=== PATIENT | female | born 1970 | race Caucasian/White ===

== ENCOUNTER 2017-03-30 20:31 | Observation (INO) | payer OTHER, MEDICAID ==
[~2017-03-30] VITALS: Ht 165.1 cm; Wt 79.8 kg
[2017-03-31] MEDS ORDERED: SODIUM CHLORIDE 0.9% 1,000 ML IV ONE (01:35)
[2017-03-31] MEDS ORDERED: MORPHINE SULFATE 4 MG/ML CPJ (NOT FOR IM USE) IV STA (01:35)
[2017-03-31] MEDS ORDERED: ONDANSETRON HCL 4MG/2ML VIAL IV STA (01:35)
[2017-03-31 01:57] LABS: BASOPHILS % 1.2 % (0.0-2.0); EOSINOPHILS % 1.1 % (0.0-5.0); HEMATOCRIT. 36.8 % (36.0-48.0); HEMOGLOBIN. 11.5 g/dL (12.0-16.0); LYMPHOCYTES % 12.9 % (20.0-50.0); MEAN CORPUSCULAR HEMOGLOBIN 21.7 pg (28.0-32.0); MEAN CORPUSCULAR VOLUME 69.5 fL (81.0-99.0); MEAN PLATELET VOLUME 8.1 fl (7.4-10.4); MONOCYTES % 5.7 % (2.0-8.0); NEUTROPHILS % 79.1 % (40.0-76.0); PLATELET 380 x1000/uL (130-400); RED CELL DISTRIBUTION WIDTH 18.1 % (11.6-14.6)
[2017-03-31 02:03] LABS: INR 1.1; PROTHROMBIN TIME 10.9 sec
[2017-03-31 02:07] LABS: CARBON DIOXIDE 29 mEq/L (21-32); CHLORIDE 103 mEq/L (98-107)
[2017-03-31 02:16] LABS: CLARITY URINE CLOUDY (CLEAR); COLOR URINE YELLOW (YELLOW); GLUCOSE URINE 3+ (NEGATIVE); KETONES URINE TRACE (NEGATIVE); LEUKOCYTE ESTERASE URINE NEGATIVE (NEGATIVE); NITRITE URINE POSITIVE (NEGATIVE); OCCULT BLOOD URINE 3+ (NEGATIVE); PH URINE 5.5 (4.5-8.0); PROTEIN URINE NEGATIVE (NEGATIVE); SPECIFIC GRAVITY URINE 1.044 (1.005-1.030); UROBILINOGEN URINE 0.2 E.U./dL (0.2-1.0)
[2017-03-31 02:19] LABS: PLATELET ESTIMATE NORMAL
[2017-03-31] MEDS ORDERED: PIPERACILLIN/TAZ 3.375G PREMIX 50 ML IV ONE (05:30)
[2017-03-31] MEDS ORDERED: SKIN ADHESIVE 0.7 GM EA TOP ONE (10:11)
[2017-03-31] MEDS ORDERED: BUPIVACAINE HCL 0.5% (5MG/ML) 50ML ONE (10:12)
[2017-03-31] MEDS ORDERED: MORPHINE SULFATE 2 MG/ML CPJ (NOT FOR IM USE) IV PRN (11:00)
[2017-03-31] MEDS ORDERED: ACETAMINOPHEN 325MG TABLET PO PRN ×2 (11:00→17:45)
[2017-03-31] MEDS ORDERED: ONDANSETRON HCL 4MG/2ML VIAL IV PRN ×3 (11:00→17:45)
[2017-03-31] MEDS ORDERED: HYDROCODONE/ACETAMINOPHEN 5/325MG TABLET PO PRN ×2 (11:00)
[2017-03-31] MEDS ORDERED: NORMAL SALINE 0.9% 10 ML SYR ONE (11:36)
[2017-03-31] MEDS ORDERED: MIDAZOLAM HCL 2 MG/2 ML VIAL ONE (12:03)
[2017-03-31] MEDS ORDERED: FENTANYL CITRATE/PF 50MCG/ML 2ML VIAL ONE (12:06)
[2017-03-31] MEDS ORDERED: ROCURONIUM BROMIDE 10MG/ML VIAL 5ML IV ONE (12:07)
[2017-03-31] MEDS ORDERED: PROPOFOL 200MG/20ML VIAL IV ONE (12:07)
[2017-03-31] MEDS ORDERED: LIDOCAINE HCL 1% 20ML VIAL (Pyxis) INJ ONE (12:07)
[2017-03-31] MEDS ORDERED: INSULIN REGULAR (HUMULIN R) 300UNITS/3ML ONE (12:15)
[2017-03-31] MEDS ORDERED: METOCLOPRAMIDE HCL 10MG/2ML VIAL ONE (12:20)
[2017-03-31] MEDS ORDERED: NEOSTIGMINE METHYLSULFATE 1MG/ML 10 ML VIAL ONE (12:41)
[2017-03-31] MEDS ORDERED: GLYCOPYRROLATE 0.2 MG/ML 2ML VIAL ONE (12:41)
[2017-03-31] MEDS ORDERED: SODIUM CHLORIDE 0.9% 1,000 ML IV SCH (13:06)
[2017-03-31] MEDS ORDERED: HYDROMORPHONE HCL/PF 2MG/ML CPJ IV PRN (13:15)
[2017-03-31] MEDS ORDERED: ESMOLOL HCL 10MG/ML 10ML VIAL IV PRN (13:15)
[2017-03-31] MEDS ORDERED: SODIUM CHLORIDE 0.9% 10ML VIAL ONE (13:17)
[2017-03-31] MEDS ORDERED: IOHEXOL-300 100 ML BOTTLE ONE (13:17)
[2017-03-31 16:15] VITALS: BP 98/65
[2017-03-31] MEDS ORDERED: SODIUM CHLORIDE 0.45% 1,000 ML IV SCH (17:35)
[2017-03-31] MEDS ORDERED: CLONIDINE 0.1MG TABLET PO PRN (17:45)
[2017-03-31] MEDS ORDERED: IPRATROPIUM/ALBUTEROL 0.5-3(2.5)MG/3ML NEB INH PRN (17:45)
[2017-03-31] MEDS ORDERED: DEXT 5%/0.45% NACL KCL 20MEQ/L 1,000 ML IV SCH (18:00)
[2017-03-31] MEDS: MORPHINE SULFATE 4 MG/ML CPJ (NOT FOR IM USE) IV PRN (18:52)
[2017-03-31 20:00] VITALS: BP 105/72
[2017-03-31] MEDS: SODIUM CHLORIDE 0.9% INJ 3ML FLUSH IVF SCH (22:00)
[2017-03-31] MEDS: PIPERACILLIN/TAZ 3.375G PREMIX 50 ML IV SCH (23:28)
[2017-04-01] VITALS: BP 117/66
[2017-04-01] MEDS: MORPHINE SULFATE 4 MG/ML CPJ (NOT FOR IM USE) IV PRN ×2 (01:35→09:48)
[2017-04-01 04:00] VITALS: BP 101/62
[2017-04-01] MEDS: PIPERACILLIN/TAZ 3.375G PREMIX 50 ML IV SCH ×3 (04:59→13:02)
[2017-04-01] MEDS ORDERED: DEXTROSE 50% WATER 50ML SYRINGE IV PRN (05:15)
[2017-04-01 06:32] LABS: BASOPHILS % 0.6 % (0.0-2.0); EOSINOPHILS % 0.6 % (0.0-5.0); HEMATOCRIT. 33.4 % (36.0-48.0); HEMOGLOBIN. 10.5 g/dL (12.0-16.0); LYMPHOCYTES % 10.4 % (20.0-50.0); MEAN CORPUSCULAR HEMOGLOBIN 21.9 pg (28.0-32.0); MEAN CORPUSCULAR VOLUME 69.6 fL (81.0-99.0); MONOCYTES % 6.6 % (2.0-8.0); NEUTROPHILS % 81.8 % (40.0-76.0); PLATELET 374 x1000/uL (130-400); RED BLOOD CELL COUNT 4.79 mill/uL (4.2-5.4); RED CELL DISTRIBUTION WIDTH 18.2 % (11.6-14.6)
[2017-04-01] MEDS: SODIUM CHLORIDE 0.9% INJ 3ML FLUSH IVF SCH ×2 (07:08→13:08)
[2017-04-01] MEDS: BLOOD SUGAR DIAGNOSTIC STRIP TEST SCH ×3 (07:19→17:19)
[2017-04-01 07:22] LABS: CARBON DIOXIDE 22 mEq/L (21-32); CHLORIDE 110 mEq/L (98-107); HDL CHOLESTEROL 43 mg/dL (40-59); LDL CHOLESTEROL 101 mg/dL (5-100); T4 FREE 1.19 ng/dL (0.76-1.46)
[2017-04-01 08:00] VITALS: BP 111/75
[2017-04-01] MEDS: INSULIN LISPRO 100 UNITS/ML SUBCUT SCH ×3 (08:26→17:51)
[2017-04-01] MEDS ORDERED: ACETAMINOPHEN 650MG SUPP PR PRN (09:30)
[2017-04-01] MEDS ORDERED: DEXT 5%/0.45% NACL KCL 20MEQ/L 1,000 ML IV SCH (10:30)
[2017-04-01 12:00] VITALS: BP 109/73
[2017-04-01 16:00] VITALS: BP 104/70
[2017-04-01 18:11] VITALS: BP 95/62
== END 2017-04-01 19:01 | disposition home or self-care (01) ==
LOC: ER 20:31 → 6EST 03-31 09:22 → INTOOBSV 03-31 09:22 → ENRESERV 03-31 13:29
PROVIDERS: ADMIT Internal Medicine; ATTEND Internal Medicine
DX: K35.80 Unspecified acute appendicitis (principal); A41.9 Sepsis, unspecified organism; R11.2 Nausea with vomiting, unspecified; I10 Essential (primary) hypertension; E11.9 Type 2 diabetes mellitus without complications
CPT/HCPCS: 36415; 44970; 74177; 80053; 80061; 81001; 82962; 83690; 84439; 84443; 85025; 85610; 87040; 87077; 87086; 87186; 88304; 93005; 96365; 96372; 96375; 96376; 99285; A4216; G0168; G0378; J1815; J2250; J2270; J2405; J2543; J2710; J2765; J3010; J3490; J7030; Q9967; J2704

== ENCOUNTER 2018-09-23 20:57 | Emergency (ER) | payer MEDICARE, MEDICAID ==
[~2018-09-23] VITALS: Ht 165.1 cm; Wt 81.0 kg
[~2018-09-23 20:57] MED LIST: BUPR-43 PO; OMEP20TA2 PO; SIMV20TA6 PO
[2018-09-23] MEDS ORDERED: SODIUM CHLORIDE 0.9% 1,000 ML IV ONE (23:23)
[2018-09-23] MEDS ORDERED: FAMOTIDINE 20MG/2ML VIAL IV STA (23:23)
[2018-09-23] MEDS ORDERED: KETOROLAC 30MG/ML VIAL IV STA (23:23)
[2018-09-23] MEDS ORDERED: ONDANSETRON HCL 4MG/2ML INJ IV STA (23:23)
[2018-09-24 00:02] LABS: CLARITY URINE CLEAR (CLEAR); COLOR URINE YELLOW (YELLOW); KETONES URINE NEGATIVE (NEGATIVE); LEUKOCYTE ESTERASE URINE NEGATIVE (NEGATIVE); NITRITE URINE POSITIVE (NEGATIVE); OCCULT BLOOD URINE NEGATIVE (NEGATIVE); PROTEIN URINE NEGATIVE (NEGATIVE); SPECIFIC GRAVITY URINE 1.039 (1.005-1.030); UROBILINOGEN URINE 0.2 E.U./dL (0.2-1.0)
[2018-09-24 00:48] LABS: BASOPHILS % 0.4 % (0.0-2.0); EOSINOPHILS % 1.8 % (0.0-5.0); HEMATOCRIT. 44.8 % (36.0-48.0); LYMPHOCYTES % 13.2 % (20.0-50.0); MEAN CORPUSCULAR HEMOGLOBIN 29.6 pg (28.0-32.0); MEAN CORPUSCULAR VOLUME 88.4 fL (81.0-99.0); MEAN PLATELET VOLUME 8.9 fl (7.4-10.4); MONOCYTES % 4.4 % (2.0-8.0); NEUTROPHILS % 80.2 % (40.0-76.0); PLATELET 316 x1000/uL (130-400); RED BLOOD CELL COUNT 5.07 mill/uL (4.2-5.4); RED CELL DISTRIBUTION WIDTH 13.7 % (11.6-14.6)
[2018-09-24 01:12] LABS: CHLORIDE 104 mEq/L (98-107)
[2018-09-24] MEDS ORDERED: SODIUM CHLORIDE 0.9% 1,000 ML IV ONE (03:00)
[2018-09-24] MEDS ORDERED: CEFTRIAXONE SODIUM 1 G/VIAL IV ONE (03:00)
[2018-09-24] MEDS ORDERED: CEFTRIAXONE 1 G PREMIX 50 ML IV ONE (03:15)
[2018-09-24 04:47] VITALS: BP 113/69
== END 2018-09-24 05:17 | disposition home or self-care (01) ==
LOC: ER 21:00
DX: N12 Tubulo-interstitial nephritis, not specified as acute or chronic (principal); E11.65 Type 2 diabetes mellitus with hyperglycemia; R51 Headache; E78.00 Pure hypercholesterolemia, unspecified; I10 Essential (primary) hypertension; Z90.49 Acquired absence of other specified parts of digestive tract; Z79.899 Other long term (current) drug therapy; Z79.4 Long term (current) use of insulin
CPT/HCPCS: 36415; 74176; 80053; 81003; 81025; 82962; 85025; 96361; 96365; 96375; 99284; J0696; J1885; J2405; J3490; J7030

== ENCOUNTER 2019-02-09 23:09 | Inpatient (IN) | payer MEDICARE, MEDICAID ==
[~2019-02-09] VITALS: Ht 165.1 cm; Wt 77.2 kg
[2019-02-10] MEDS ORDERED: ONDANSETRON HCL 4MG/2ML INJ IV STA (00:19)
[2019-02-10] MEDS ORDERED: MORPHINE SULFATE 4 MG/ML CPJ (NOT FOR IM USE) IV STA (00:19)
[2019-02-10] MEDS ORDERED: SODIUM CHLORIDE 0.9% 1,000 ML IV ONE ×2 (00:19→19:00)
[2019-02-10] MEDS ORDERED: ASPIRIN 81MG TABLET PO ONE (00:30)
[2019-02-10 00:38] LABS: CHLORIDE 98 mEq/L (98-107)
[2019-02-10 00:41] LABS: EOSINOPHILS % 3.8 % (0.0-5.0); HEMATOCRIT. 43.7 % (36.0-48.0); HEMOGLOBIN. 14.6 g/dL (12.0-16.0); LYMPHOCYTES % 30.7 % (20.0-50.0); MEAN CORPUSCULAR HEMOGLOBIN 29.6 pg (28.0-32.0); MEAN CORPUSCULAR VOLUME 88.6 fL (81.0-99.0); MEAN PLATELET VOLUME 9.8 fl (7.4-10.4); MONOCYTES % 6.9 % (2.0-8.0); NEUTROPHILS % 57.6 % (40.0-76.0); PLATELET 312 x1000/uL (130-400); RED BLOOD CELL COUNT 4.94 mill/uL (4.2-5.4); RED CELL DISTRIBUTION WIDTH 13.2 % (11.6-14.6)
[2019-02-10 00:42] LABS: ETHANOL BLOOD < 10 mg/dL
[2019-02-10 00:45] LABS: CLARITY URINE CLEAR (CLEAR); COLOR URINE YELLOW (YELLOW); KETONES URINE NEGATIVE (NEGATIVE); LEUKOCYTE ESTERASE URINE NEGATIVE (NEGATIVE); NITRITE URINE NEGATIVE (NEGATIVE); OCCULT BLOOD URINE NEGATIVE (NEGATIVE); PH URINE 5.5 (4.5-8.0); PROTEIN URINE NEGATIVE (NEGATIVE); SPECIFIC GRAVITY URINE 1.032 (1.005-1.030); UROBILINOGEN URINE 0.2 E.U./dL (0.2-1.0)
[2019-02-10 00:52] LABS: D-DIMER < 0.19 mg/L FEU (<0.50); PARTIAL THROMBOPLASTIN TIME 26.5 sec (23.4-31.0); PROTHROMBIN TIME 9.9 sec (9.6-11.0)
[2019-02-10 00:53] LABS: *AMPHETAMINES SCREEN URINE NEGATIVE (NEGATIVE); *BARBITURATES SCREEN URINE NEGATIVE (NEGATIVE)
[2019-02-10 00:54] LABS: *BENZODIAZEPINES SCREEN URINE NEGATIVE (NEGATIVE); *COCAINE SCREEN URINE NEGATIVE (NEGATIVE); CANNABINOID URINE SCREEN NEGATIVE (NEGATIVE); METHADONE URINE SCREEN NEGATIVE (NEGATIVE); OPIATES URINE SCREEN NEGATIVE (NEGATIVE); PHENCYCLIDINE URINE SCREEN NEGATIVE (NEGATIVE)
[2019-02-10] MEDS ORDERED: INSULIN REGULAR (HUMULIN R) 300UNITS/3ML IV ONE (01:30)
[2019-02-10] MEDS ORDERED: INSULIN REGULAR (HUMULIN R) 300UNITS/3ML SUBCUT ONE (01:30)
[2019-02-10 04:20] VITALS: BP 115/67
[2019-02-10] MEDS ORDERED: ACETAMINOPHEN 325MG TABLET PO PRN ×2 (06:30→18:30)
[2019-02-10] MEDS ORDERED: MECLIZINE 25MG TABLET PO PRN ×3 (06:30→07:00)
[2019-02-10 06:45] VITALS: BP 137/85
[2019-02-10] MEDS ORDERED: DEXTROSE 50% WATER 50ML SYRINGE IV PRN (07:00)
[2019-02-10] MEDS: BLOOD SUGAR DIAGNOSTIC STRIP TEST SCH ×4 (07:20→21:16)
[2019-02-10 07:30] VITALS: BP 109/60
[2019-02-10] MEDS: ASPIRIN 325MG EC TABLET PO SCH (08:40)
[2019-02-10] MEDS: INSULIN LISPRO 100 UNITS/ML SUBCUT SCH ×4 (08:40→21:36)
[2019-02-10] MEDS: ENOXAPARIN 40MG/0.4ML SYR SUBCUT SCH (08:40)
[2019-02-10] MEDS: LISINOPRIL 20MG TABLET PO SCH (08:41)
[2019-02-10 09:26] LABS: BASOPHILS % 1.2 % (0.0-2.0); EOSINOPHILS % 4.2 % (0.0-5.0); HEMATOCRIT. 40.2 % (36.0-48.0); HEMOGLOBIN. 13.5 g/dL (12.0-16.0); LYMPHOCYTES % 36.8 % (20.0-50.0); MEAN CORPUSCULAR HEMOGLOBIN 29.2 pg (28.0-32.0); MEAN CORPUSCULAR VOLUME 86.9 fL (81.0-99.0); MEAN PLATELET VOLUME 9.3 fl (7.4-10.4); MONOCYTES % 7.8 % (2.0-8.0); PLATELET 299 x1000/uL (130-400); RED BLOOD CELL COUNT 4.63 mill/uL (4.2-5.4); RED CELL DISTRIBUTION WIDTH 13.3 % (11.6-14.6)
[2019-02-10 11:31] LABS: CHLORIDE 110 mEq/L (98-107)
[2019-02-10 11:38] LABS: LDL CHOLESTEROL 124 mg/dL (5-100)
[2019-02-10 11:40] LABS: HDL CHOLESTEROL 32 mg/dL (40-59)
[2019-02-10 12:00] VITALS: BP 107/66
[2019-02-10 16:00] VITALS: BP 101/58
[2019-02-10] MEDS ORDERED: MAGNESIUM/ALUMINUM HYDROXIDE/SIMETHICONE 30ML UDC PO PRN (18:30)
[2019-02-10] MEDS ORDERED: ONDANSETRON HCL 4MG/2ML INJ IV PRN (18:30)
[2019-02-10] MEDS ORDERED: ENOXAPARIN 40MG/0.4ML SYR SUBCUT SCH (18:30)
[2019-02-10] MEDS ORDERED: IPRATROPIUM/ALBUTEROL 0.5-3(2.5)MG/3ML NEB INH PRN (18:30)
[2019-02-10] MEDS ORDERED: DIPHENHYDRAMINE 50MG/ML VIAL IV PRN (18:30)
[2019-02-10] MEDS ORDERED: HYDROCODONE/ACETAMINOPHEN 5/325MG TABLET PO PRN (18:45)
[2019-02-10] MEDS ORDERED: CLONIDINE 0.1MG TABLET PO PRN (19:00)
[2019-02-10 20:00] VITALS: BP 105/54
[2019-02-10] MEDS ORDERED: NAPROXEN 250MG TABLET PO PRN (20:00)
[2019-02-10] MEDS ORDERED: TEMAZEPAM 15MG CAPSULE PO PRN (21:00)
[2019-02-10] MEDS: PANTOPRAZOLE SODIUM 40 MG/VIAL IV SCH (21:15)
[2019-02-10] MEDS ORDERED: INSULIN GLARGINE UD 100 UNITS/ML SYR SUBCUT SCH (22:00)
[2019-02-11] VITALS: BP 118/61
[2019-02-11 04:00] VITALS: BP 112/60
[2019-02-11] MEDS: BLOOD SUGAR DIAGNOSTIC STRIP TEST SCH ×2 (06:43→12:47)
[2019-02-11 08:07] VITALS: BP 121/61
[2019-02-11] MEDS ORDERED: BUPROPION HCL 150MG TABLET XL 24HR PO SCH (09:00)
[2019-02-11] MEDS: PANTOPRAZOLE SODIUM 40 MG/VIAL IV SCH (09:02)
[2019-02-11] MEDS: ENOXAPARIN 40MG/0.4ML SYR SUBCUT SCH (09:03)
[2019-02-11] MEDS: LISINOPRIL 20MG TABLET PO SCH (09:04)
[2019-02-11] MEDS: INSULIN LISPRO 100 UNITS/ML SUBCUT SCH ×2 (09:07→13:07)
[2019-02-11] MEDS: ASPIRIN 325MG EC TABLET PO SCH (09:10)
[2019-02-11 11:56] VITALS: BP 99/62
[2019-02-11 16:03] VITALS: BP 102/52
[2019-02-11 16:12] VITALS: BP 102/52
[2019-02-12] MEDS ORDERED: FAMOTIDINE 20MG TABLET PO SCH (09:00)
== END 2019-02-11 16:44 | disposition home or self-care (01) | DRG 313 ==
LOC: ER 23:09 → 6WST 02-10 01:29 → EDBEDREQ 02-10 01:50 → EDBEDREQTM 02-10 01:50 → ENRESERV 02-10 02:42
PROVIDERS: ADMIT Internal Medicine; ATTEND Internal Medicine
DX: R07.89 Other chest pain (principal); E11.65 Type 2 diabetes mellitus with hyperglycemia; E78.00 Pure hypercholesterolemia, unspecified; I10 Essential (primary) hypertension; J45.909 Unspecified asthma, uncomplicated; Z79.4 Long term (current) use of insulin; Z87.11 Personal history of peptic ulcer disease; Z90.49 Acquired absence of other specified parts of digestive tract; Z98.891 History of uterine scar from previous surgery
CPT/HCPCS: 36415; 71045; 74176; 80061; 80305; 80320; 82010; 82962; 83036; 83880; 84484; 85379; 93005; 93306; 96361; 96372; 96374; 96375; 99285; C9113; J1650; J1815; J2270; J2405; J7030; J8597; G0480

== ENCOUNTER 2019-05-12 20:03 | Emergency (ER) | payer MEDICARE, MEDICAID ==
[~2019-05-12] VITALS: Ht 152.4 cm; Wt 79.0 kg
[2019-05-12] MEDS ORDERED: SODIUM CHLORIDE 0.9% 1,000 ML IV ONE (20:18)
[2019-05-12] MEDS ORDERED: FUROSEMIDE 40MG/4ML VIAL IVP ONE (21:15)
[2019-05-12 21:34] LABS: CHLORIDE 107 mEq/L (98-107); EOSINOPHILS % 2.3 % (0.0-5.0); HEMATOCRIT. 42.3 % (36.0-48.0); HEMOGLOBIN. 14.4 g/dL (12.0-16.0); LYMPHOCYTES % 17.3 % (20.0-50.0); MEAN CORPUSCULAR HEMOGLOBIN 29.7 pg (28.0-32.0); MEAN CORPUSCULAR VOLUME 87.2 fL (81.0-99.0); MEAN PLATELET VOLUME 9.6 fl (7.4-10.4); MONOCYTES % 7.4 % (2.0-8.0); PLATELET 284 x1000/uL (130-400); RED BLOOD CELL COUNT 4.85 mill/uL (4.2-5.4); RED CELL DISTRIBUTION WIDTH 13.3 % (11.6-14.6)
[2019-05-12] MEDS ORDERED: ACETAMINOPHEN 500MG TABLET PO ONE (23:00)
[2019-05-12 23:04] LABS: CLARITY URINE CLOUDY (CLEAR); COLOR URINE YELLOW (YELLOW); KETONES URINE NEGATIVE (NEGATIVE); LEUKOCYTE ESTERASE URINE NEGATIVE (NEGATIVE); NITRITE URINE NEGATIVE (NEGATIVE); OCCULT BLOOD URINE NEGATIVE (NEGATIVE); PH URINE 6.5 (4.5-8.0); PROTEIN URINE NEGATIVE (NEGATIVE); SPECIFIC GRAVITY URINE 1.032 (1.005-1.030); UROBILINOGEN URINE 0.2 E.U./dL (0.2-1.0)
[2019-05-13 00:30] VITALS: BP 132/68
== END 2019-05-13 01:08 | disposition home or self-care (01) ==
LOC: ER 20:03
DX: E11.65 Type 2 diabetes mellitus with hyperglycemia (principal); R53.1 Weakness; R42 Dizziness and giddiness; M79.18 Myalgia, other site; E78.00 Pure hypercholesterolemia, unspecified; I10 Essential (primary) hypertension; Z98.890 Other specified postprocedural states; Z90.49 Acquired absence of other specified parts of digestive tract; Z79.899 Other long term (current) drug therapy
CPT/HCPCS: 36415; 71045; 80053; 81003; 82962; 83880; 84484; 85025; 93005; 96361; 96374; 99284; J1940; J7030

== ENCOUNTER 2019-10-26 19:11 | Emergency (ER) | payer MEDICARE, MEDICAID ==
[~2019-10-26] VITALS: Ht 165.1 cm; Wt 77.0 kg
[~2019-10-26 19:11] MED LIST changes: +SIMV-43 PO; -SIMV20TA6 PO
[2019-10-26] MEDS ORDERED: ONDANSETRON HCL 4MG/2ML INJ IV STA (20:27)
[2019-10-26] MEDS ORDERED: SODIUM CHLORIDE 0.9% 1,000 ML IV ONE ×2 (20:27→23:45)
[2019-10-26] MEDS ORDERED: KETOROLAC 30MG/ML VIAL IV STA (20:27)
[2019-10-26 21:10] LABS: BASOPHILS % 0.5 % (0.0-2.0); EOSINOPHILS % 0.9 % (0.0-5.0); HEMATOCRIT. 43.9 % (36.0-48.0); HEMOGLOBIN. 15.1 g/dL (12.0-16.0); LYMPHOCYTES % 11.9 % (20.0-50.0); MEAN CORPUSCULAR VOLUME 87.2 fL (81.0-99.0); MEAN PLATELET VOLUME 9.6 fl (7.4-10.4); MONOCYTES % 9.2 % (2.0-8.0); NEUTROPHILS % 77.5 % (40.0-76.0); PLATELET 245 x1000/uL (130-400); RED BLOOD CELL COUNT 5.03 mill/uL (4.2-5.4); RED CELL DISTRIBUTION WIDTH 13.1 % (11.6-14.6)
[2019-10-26 21:15] LABS: CHLORIDE 107 mEq/L (98-107)
[2019-10-26 21:52] LABS: CLARITY URINE CLOUDY (CLEAR); COLOR URINE YELLOW (YELLOW); KETONES URINE 1+ (NEGATIVE); LEUKOCYTE ESTERASE URINE NEGATIVE (NEGATIVE); NITRITE URINE NEGATIVE (NEGATIVE); OCCULT BLOOD URINE NEGATIVE (NEGATIVE); PH URINE 5.5 (4.5-8.0); PROTEIN URINE NEGATIVE (NEGATIVE); SPECIFIC GRAVITY URINE 1.042 (1.005-1.030); UROBILINOGEN URINE 0.2 E.U./dL (0.2-1.0)
[2019-10-26] MEDS ORDERED: ACETAMINOPHEN WITH CODEINE 300/30MG TABLET PO ONE (23:45)
[2019-10-26] MEDS ORDERED: INSULIN REGULAR (HUMULIN R) 300UNITS/3ML SUBCUT ONE (23:45)
[2019-10-27] MEDS ORDERED: IBUPROFEN 600MG TABLET PO NR (01:30)
[2019-10-27 01:41] VITALS: BP 113/64
== END 2019-10-27 01:47 | disposition home or self-care (01) ==
LOC: ER 19:11
DX: R07.9 Chest pain, unspecified (principal); E11.65 Type 2 diabetes mellitus with hyperglycemia; I10 Essential (primary) hypertension; E78.00 Pure hypercholesterolemia, unspecified; Z79.4 Long term (current) use of insulin; Z98.51 Tubal ligation status; Z98.890 Other specified postprocedural states
CPT/HCPCS: 36415; 71045; 80053; 81003; 82962; 84484; 85025; 87040; 93005; 96361; 96372; 96374; 96375; 99284; J1815; J1885; J2405; J7030

== ENCOUNTER 2020-02-14 00:42 | Emergency (ER) | payer MEDICARE, MEDICAID ==
[~2020-02-14] VITALS: Ht 160 cm; Wt 77.0 kg
[2020-02-14] MEDS ORDERED: ACETAMINOPHEN 325MG TABLET PO ONE (01:30)
[2020-02-14 01:32] LABS: EOSINOPHILS % 2.3 % (0.0-5.0); HEMATOCRIT. 41.8 % (36.0-48.0); HEMOGLOBIN. 14.6 g/dL (12.0-16.0); LYMPHOCYTES % 16.2 % (20.0-50.0); MEAN CORPUSCULAR HEMOGLOBIN 29.9 pg (28.0-32.0); MEAN CORPUSCULAR VOLUME 85.6 fL (81.0-99.0); MEAN PLATELET VOLUME 9.3 fl (7.4-10.4); MONOCYTES % 7.5 % (2.0-8.0); PLATELET 280 x1000/uL (130-400); RED BLOOD CELL COUNT 4.89 mill/uL (4.2-5.4); RED CELL DISTRIBUTION WIDTH 13.4 % (11.6-14.6)
[2020-02-14 01:37] LABS: CHLORIDE 105 mEq/L (98-107)
[2020-02-14 01:38] LABS: CLARITY URINE CLEAR (CLEAR); COLOR URINE YELLOW (YELLOW); KETONES URINE NEGATIVE (NEGATIVE); LEUKOCYTE ESTERASE URINE NEGATIVE (NEGATIVE); NITRITE URINE POSITIVE (NEGATIVE); OCCULT BLOOD URINE NEGATIVE (NEGATIVE); PROTEIN URINE NEGATIVE (NEGATIVE); SPECIFIC GRAVITY URINE 1.037 (1.005-1.030); UROBILINOGEN URINE 0.2 E.U./dL (0.2-1.0)
[2020-02-14 05:04] VITALS: BP 135/80
[2020-02-15] MEDS ORDERED: INSASP (18:34)
[2020-02-15] MEDS ORDERED: GABA-531 (18:34)
[2020-02-15] MEDS ORDERED: CEPH500C2 (18:34)
[2020-02-15] MEDS ORDERED: TERB250T51 (18:34)
[2020-02-15] MEDS ORDERED: PRIL20 (18:34)
[2020-02-15] MEDS ORDERED: INSU100I24 (18:34)
[2020-02-15] MEDS ORDERED: BENA5TAB6 (18:34)
[2020-02-15] MEDS ORDERED: SODI88SP18 (18:34)
== END 2020-02-14 05:04 | disposition home or self-care (01) ==
LOC: ER 01:05
DX: N39.0 Urinary tract infection, site not specified (principal); E11.65 Type 2 diabetes mellitus with hyperglycemia; I10 Essential (primary) hypertension; E78.00 Pure hypercholesterolemia, unspecified; Z98.51 Tubal ligation status
CPT/HCPCS: 36415; 80048; 81003; 85025; 99283

== ENCOUNTER 2020-02-15 18:15 | Emergency (ER) | payer MEDICARE, MEDICAID ==
[~2020-02-15] VITALS: Ht 165.1 cm; Wt 78.0 kg
[2020-02-15] MEDS ORDERED: CEPH500C2 (18:34)
[2020-02-15] MEDS ORDERED: GABA-531 (18:34)
[2020-02-15] MEDS ORDERED: SODI88SP18 (18:34)
[2020-02-15] MEDS ORDERED: PRIL20 (18:34)
[2020-02-15] MEDS ORDERED: INSU100I24 (18:34)
[2020-02-15] MEDS ORDERED: BENA5TAB6 (18:34)
[2020-02-15] MEDS ORDERED: TERB250T51 (18:34)
[2020-02-15] MEDS ORDERED: INSASP (18:34)
[2020-02-15] MEDS ORDERED: KETOROLAC 30MG/ML VIAL IV STA (20:31)
[2020-02-15] MEDS ORDERED: ONDANSETRON HCL 4MG/2ML INJ IV STA (20:31)
[2020-02-15] MEDS ORDERED: SODIUM CHLORIDE 0.9% 1,000 ML IV ONE (20:31)
[2020-02-15] MEDS ORDERED: CEFTRIAXONE 1 G PREMIX 50 ML IV ONE (20:45)
[2020-02-15 21:29] LABS: BASOPHILS % 0.6 % (0.0-2.0); EOSINOPHILS % 0.9 % (0.0-5.0); LYMPHOCYTES % 17.3 % (20.0-50.0); MEAN CORPUSCULAR HEMOGLOBIN 29.7 pg (28.0-32.0); MEAN CORPUSCULAR VOLUME 86.7 fL (81.0-99.0); MEAN PLATELET VOLUME 10.2 fl (7.4-10.4); MONOCYTES % 6.9 % (2.0-8.0); NEUTROPHILS % 74.3 % (40.0-76.0); PLATELET 283 x1000/uL (130-400); RED BLOOD CELL COUNT 5.78 mill/uL (4.2-5.4); RED CELL DISTRIBUTION WIDTH 13.6 % (11.6-14.6)
[2020-02-15 21:30] LABS: CLARITY URINE CLEAR (CLEAR); COLOR URINE YELLOW (YELLOW); KETONES URINE 2+ (NEGATIVE); LEUKOCYTE ESTERASE URINE TRACE (NEGATIVE); NITRITE URINE NEGATIVE (NEGATIVE); OCCULT BLOOD URINE NEGATIVE (NEGATIVE); PH URINE 5.5 (4.5-8.0); PROTEIN URINE TRACE (NEGATIVE); SPECIFIC GRAVITY URINE 1.041 (1.005-1.030)
[2020-02-15] MEDS ORDERED: ACETAMINOPHEN 325MG TABLET PO ONE (21:30)
[2020-02-15 21:49] LABS: HEMOGLOBIN. 17.2 g/dL (12.0-16.0)
[2020-02-15 21:50] LABS: HEMATOCRIT. 50.1 % (36.0-48.0)
[2020-02-15 23:54] LABS: CHLORIDE 110 mEq/L (98-107)
[2020-02-16 00:12] VITALS: BP 133/71
== END 2020-02-16 00:13 | disposition home or self-care (01) ==
LOC: ER 18:15
DX: N30.00 Acute cystitis without hematuria (principal); I10 Essential (primary) hypertension; E11.9 Type 2 diabetes mellitus without complications; E78.00 Pure hypercholesterolemia, unspecified; Z79.4 Long term (current) use of insulin; Z98.51 Tubal ligation status
CPT/HCPCS: 36415; 80053; 81003; 85025; 87086; 96365; 96375; 99284; J0696; J1885; J2405; J7030

== ENCOUNTER 2020-02-17 23:09 | Emergency (ER) | payer MEDICARE, MEDICAID ==
[~2020-02-17] VITALS: Ht 165.1 cm; Wt 77.3 kg
[~2020-02-17 23:09] MED LIST changes: +BENA5TAB6; +CEPH500C2; +GABA-531; +INSASP; +INSU100I24; +PRIL20; +SODI88SP18; +TERB250T51
[2020-02-18 00:18] LABS: CLARITY URINE CLEAR (CLEAR); COLOR URINE YELLOW (YELLOW); KETONES URINE 4+ (NEGATIVE); LEUKOCYTE ESTERASE URINE NEGATIVE (NEGATIVE); NITRITE URINE NEGATIVE (NEGATIVE); OCCULT BLOOD URINE NEGATIVE (NEGATIVE); PH URINE 5.5 (4.5-8.0); PROTEIN URINE TRACE (NEGATIVE); SPECIFIC GRAVITY URINE 1.046 (1.005-1.030); UROBILINOGEN URINE 0.2 E.U./dL (0.2-1.0)
[2020-02-18] MEDS ORDERED: IBUPROFEN 600MG TABLET PO STA (00:45)
[2020-02-18 01:20] LABS: BASOPHILS % 0.6 % (0.0-2.0); EOSINOPHILS % 0.1 % (0.0-5.0); HEMATOCRIT. 43.4 % (36.0-48.0); HEMOGLOBIN. 14.7 g/dL (12.0-16.0); LYMPHOCYTES % 13.4 % (20.0-50.0); MEAN CORPUSCULAR HEMOGLOBIN 29.2 pg (28.0-32.0); MEAN CORPUSCULAR VOLUME 86.2 fL (81.0-99.0); MONOCYTES % 3.4 % (2.0-8.0); NEUTROPHILS % 82.5 % (40.0-76.0); PLATELET 254 x1000/uL (130-400); RED BLOOD CELL COUNT 5.03 mill/uL (4.2-5.4); RED CELL DISTRIBUTION WIDTH 13.3 % (11.6-14.6)
[2020-02-18 01:21] LABS: CHLORIDE 106 mEq/L (98-107)
[2020-02-18 03:21] VITALS: BP 141/72
== END 2020-02-18 03:22 | disposition home or self-care (01) ==
LOC: ER 23:09
DX: N30.90 Cystitis, unspecified without hematuria (principal); E11.9 Type 2 diabetes mellitus without complications; Z98.890 Other specified postprocedural states; Z87.81 Personal history of (healed) traumatic fracture
CPT/HCPCS: 36415; 74176; 76700; 80053; 81003; 85025; 99285

== ENCOUNTER 2021-08-22 18:27 | Inpatient (IN) | payer MEDICARE, MEDICAID ==
[~2021-08-22] VITALS: Ht 165.1 cm; Wt 81.8 kg
[~2021-08-22 18:27] MED LIST changes: -BUPR-43 PO; +BUPR-46 PO; -GABA-531; +GABA-532
[2021-08-22] MEDS ORDERED: KETOROLAC 30MG/ML VIAL IV STA (22:47)
[2021-08-22] MEDS ORDERED: ASPIRIN 81MG TABLET PO ONE (23:00)
[2021-08-22] MEDS ORDERED: SODIUM CHLORIDE 0.9% 1,000 ML IV ONE (23:00)
[2021-08-23] VITALS (7 sets, daily range): BP systolic 105–147; BP diastolic 60–83
[2021-08-23 00:01] LABS: BASOPHILS % 0.2 % (0.0-2.0); EOSINOPHILS % 3.2 % (0.0-5.0); HEMATOCRIT. 46.7 % (36.0-48.0); HEMOGLOBIN. 15.7 g/dL (12.0-16.0); LYMPHOCYTES % 31.4 % (20.0-50.0); MEAN CORPUSCULAR HEMOGLOBIN 29.5 pg (28.0-32.0); MEAN PLATELET VOLUME 9.6 fl (7.4-10.4); MONOCYTES % 7.4 % (2.0-8.0); NEUTROPHILS % 57.8 % (40.0-76.0); PLATELET 364 x1000/uL (130-400); RED CELL DISTRIBUTION WIDTH 13.2 % (11.6-14.6)
[2021-08-23 00:10] LABS: CHLORIDE 99 mEq/L (98-107)
[2021-08-23] MEDS ORDERED: SODIUM CHLORIDE 0.9% 1,000 ML IV ONE (03:00)
[2021-08-23] MEDS ORDERED: DEXTROSE 50% WATER 50ML SYRINGE IV PRN (07:15)
[2021-08-23] MEDS ORDERED: ACETAMINOPHEN 325MG TABLET PO PRN (07:15)
[2021-08-23] MEDS ORDERED: IPRATROPIUM/ALBUTEROL 0.5-3(2.5)MG/3ML NEB HHN PRN (07:15)
[2021-08-23] MEDS ORDERED: MAGNESIUM/ALUMINUM HYDROXIDE/SIMETHICONE 30ML UDC PO PRN (07:15)
[2021-08-23] MEDS ORDERED: LORAZEPAM 2MG/ML CPJ IV PRN (07:15)
[2021-08-23] MEDS ORDERED: ONDANSETRON HCL 4MG/2ML INJ IV PRN (07:15)
[2021-08-23] MEDS ORDERED: DIPHENHYDRAMINE 50MG/ML VIAL IV PRN (07:15)
[2021-08-23] MEDS ORDERED: MORPHINE SULFATE 2 MG/ML CPJ (NOT FOR IM USE) IV PRN (07:15)
[2021-08-23] MEDS ORDERED: CLONIDINE 0.1MG TABLET PO PRN (07:15)
[2021-08-23] MEDS ORDERED: GUAIFENESIN 200MG/10ML SUGAR FREE UDC PO PRN (07:15)
[2021-08-23] MEDS ORDERED: HYDRALAZINE 20MG/ML VIAL IV PRN (07:15)
[2021-08-23] MEDS: INSULIN LISPRO 100 UNITS/ML SUBCUT SCH ×4 (08:01→21:19)
[2021-08-23] MEDS ORDERED: DOCUSATE SODIUM 100MG CAPSULE PO PRN (09:00)
[2021-08-23] MEDS: BLOOD SUGAR DIAGNOSTIC STRIP TEST SCH ×4 (09:27→21:20)
[2021-08-23] MEDS ORDERED: DOCU-138 PO (10:04)
[2021-08-23] MEDS ORDERED: ISOS10TA53 MT (10:04)
[2021-08-23] MEDS ORDERED: METO-539 PO (10:04)
[2021-08-23] MEDS ORDERED: CELE100C97 MT (10:04)
[2021-08-23] MEDS: ENOXAPARIN 40MG/0.4ML SYR SUBCUT SCH (10:21)
[2021-08-23] MEDS ORDERED: *PATIENT'S OWN MEDICATION STORAGE XX SCH (10:30)
[2021-08-23] MEDS ORDERED: REGADENOSON 0.4 MG/5 ML IV ONE (12:15)
[2021-08-23] MEDS: SODIUM CHLORIDE 0.9% INJ 3ML FLUSH IVF SCH ×2 (12:41→21:20)
[2021-08-23] MEDS: HYDROCODONE/ACETAMINOPHEN 5/325MG TABLET PO PRN ×2 (12:41→21:18)
[2021-08-23] MEDS: LOSARTAN POTASSIUM 25 MG TABLET PO SCH (12:41)
[2021-08-23] MEDS: ASPIRIN 81MG EC TABLET PO SCH (14:20)
[2021-08-23] MEDS: NITROGLYCERIN OINT 1GM/INCH UDPKT TD SCH ×2 (14:20→21:18)
[2021-08-23] MEDS ORDERED: NALOXONE HCL 0.4MG/ML VIAL IV PRN (14:30)
[2021-08-23 15:36] LABS: CREATINE KINASE 73 IU/L (26-192)
[2021-08-23 15:37] LABS: CREATINE KINASE MB FRACTION < 1.0 ng/mL (0.5-3.6)
[2021-08-24] VITALS (9 sets, daily range): BP systolic 90–129; BP diastolic 42–76
[2021-08-24 00:12] LABS: CREATINE KINASE 60 IU/L (26-192)
[2021-08-24 00:13] LABS: CREATINE KINASE MB FRACTION < 1.0 ng/mL (0.5-3.6)
[2021-08-24] MEDS: NITROGLYCERIN OINT 1GM/INCH UDPKT TD SCH ×2 (02:00→08:54)
[2021-08-24] MEDS: SODIUM CHLORIDE 0.9% INJ 3ML FLUSH IVF SCH (05:27)
[2021-08-24 05:56] LABS: EOSINOPHILS % 5.3 % (0.0-5.0); HEMATOCRIT. 41.6 % (36.0-48.0); HEMOGLOBIN. 13.8 g/dL (12.0-16.0); LYMPHOCYTES % 35.6 % (20.0-50.0); MEAN CORPUSCULAR HEMOGLOBIN 29.4 pg (28.0-32.0); MEAN CORPUSCULAR VOLUME 88.8 fL (81.0-99.0); NEUTROPHILS % 50.1 % (40.0-76.0); PLATELET 287 x1000/uL (130-400); RED BLOOD CELL COUNT 4.69 mill/uL (4.2-5.4); RED CELL DISTRIBUTION WIDTH 13.1 % (11.6-14.6)
[2021-08-24 06:15] LABS: CHLORIDE 108 mEq/L (98-107)
[2021-08-24] MEDS: BLOOD SUGAR DIAGNOSTIC STRIP TEST SCH ×2 (06:51→11:19)
[2021-08-24] MEDS: INSULIN LISPRO 100 UNITS/ML SUBCUT SCH ×3 (06:51→12:20)
[2021-08-24] MEDS: ASPIRIN 81MG EC TABLET PO SCH (08:53)
[2021-08-24] MEDS: ENOXAPARIN 40MG/0.4ML SYR SUBCUT SCH (08:53)
[2021-08-24] MEDS: LOSARTAN POTASSIUM 25 MG TABLET PO SCH (08:54)
[2021-08-24] MEDS ORDERED: REGADENOSON 0.4 MG/5 ML IV ONE (13:26)
== END 2021-08-24 16:35 | disposition home or self-care (01) | DRG 313 ==
LOC: ER 18:27 → 3WST 08-23 01:51 → EDBEDREQTM 08-23 02:03 → EDBEDREQDT 08-23 02:03 → EDBEDREQ 08-23 02:03 → SUPCPDRO 08-23 07:14 → ENRESERV 08-23 07:41
PROVIDERS: ADMIT Internal Medicine; ATTEND Internal Medicine
DX: R07.89 Other chest pain (principal); E87.1 Hypo-osmolality and hyponatremia; R65.10 Systemic inflammatory response syndrome (SIRS) of non-infectious origin without acute organ dysfunction; K21.9 Gastro-esophageal reflux disease without esophagitis; D35.01 Benign neoplasm of right adrenal gland; E11.42 Type 2 diabetes mellitus with diabetic polyneuropathy; E78.00 Pure hypercholesterolemia, unspecified; E78.5 Hyperlipidemia, unspecified; E66.9 Obesity, unspecified; E11.65 Type 2 diabetes mellitus with hyperglycemia; F32.A Depression, unspecified; I10 Essential (primary) hypertension; K57.90 Diverticulosis of intestine, part unspecified, without perforation or abscess without bleeding; Z90.49 Acquired absence of other specified parts of digestive tract; Z90.710 Acquired absence of both cervix and uterus; Z71.3 Dietary counseling and surveillance; Z79.4 Long term (current) use of insulin; Z79.899 Other long term (current) drug therapy; Z68.30 Body mass index [BMI] 30.0-30.9, adult
CPT/HCPCS: 36415; 71045; 74176; 78452; 80053; 82550; 82553; 82962; 83735; 84443; 84484; 85025; 85379; 93005; 93017; 93306; 93970; 99291; A9500; J1650; J1815; J1885; J2405; J2785; J7030

== ENCOUNTER 2021-12-12 22:37 | Emergency (ER) | payer MEDICARE, MEDICAID ==
[~2021-12-12] VITALS: Ht 152.4 cm; Wt 77.0 kg
[~2021-12-12 22:37] MED LIST changes: +CELE100C97 MT; -CEPH500C2; +DOCU-138 PO; +ISOS10TA53 MT; +METO-539 PO
[2021-12-12 23:43] LABS: BASOPHILS % 1.1 % (0.0-2.0); EOSINOPHILS % 3.3 % (0.0-5.0); HEMATOCRIT. 42.2 % (36.0-48.0); HEMOGLOBIN. 14.2 g/dL (12.0-16.0); LYMPHOCYTES % 25.1 % (20.0-50.0); MEAN CORPUSCULAR HEMOGLOBIN 29.3 pg (28.0-32.0); MEAN CORPUSCULAR VOLUME 87.1 fL (81.0-99.0); MEAN PLATELET VOLUME 9.9 fl (7.4-10.4); MONOCYTES % 7.1 % (2.0-8.0); NEUTROPHILS % 63.4 % (40.0-76.0); PLATELET 300 x1000/uL (130-400); RED BLOOD CELL COUNT 4.85 mill/uL (4.2-5.4); RED CELL DISTRIBUTION WIDTH 13.2 % (11.6-14.6)
[2021-12-12 23:49] LABS: CHLORIDE 104 mEq/L (98-107)
[2021-12-12 23:54] LABS: BETA HYDROXYBUTYRATE 0.1 mMol/L (0.0-0.3)
[2021-12-13] MEDS ORDERED: CEPHALEXIN 250MG CAPSULE PO NR (00:30)
[2021-12-13] MEDS ORDERED: DOXYCYCLINE HYCLATE 100MG CAPSULE PO NR (00:30)
[2021-12-13] MEDS ORDERED: DOXY100C5 MT (00:36)
[2021-12-13] MEDS ORDERED: CEPH500C2 MT (00:36)
[2021-12-13] MEDS ORDERED: MUPI15CR11 TP (00:36)
[2021-12-13 01:10] VITALS: BP 139/74
== END 2021-12-13 01:15 | disposition home or self-care (01) ==
LOC: ER 22:37
DX: L73.9 Follicular disorder, unspecified (principal); E11.65 Type 2 diabetes mellitus with hyperglycemia; E78.00 Pure hypercholesterolemia, unspecified; I10 Essential (primary) hypertension; Z90.710 Acquired absence of both cervix and uterus; Z90.49 Acquired absence of other specified parts of digestive tract; Z79.899 Other long term (current) drug therapy
CPT/HCPCS: 36415; 80048; 82010; 82962; 85025; 99283

== ENCOUNTER 2023-08-24 16:05 | Emergency (ER) | payer MEDICARE, MEDICAID ==
[~2023-08-24] VITALS: Ht 152.4 cm; Wt 91.0 kg
[~2023-08-24 16:05] MED LIST changes: +BENA5TAB40; -BENA5TAB6; +CELE-146 MT; -CELE100C97 MT; +CEPH500C2 MT; +DOXY100C5 MT; -ISOS10TA53 MT; +ISOS10TA8 MT; +MUPI15CR11 TP; -OMEP20TA2 PO; +OMEP20TA23 PO; -TERB250T51; +TERB250T88
[2023-08-24 16:19] VITALS: O2SAT 96
[2023-08-24 17:20] LABS: CLARITY URINE CLEAR (CLEAR); COLOR URINE YELLOW (YELLOW); GLUCOSE URINE 3+ (NEGATIVE); PH URINE 6.5 (4.5-8.0); PROTEIN URINE TRACE (NEGATIVE)
[2023-08-24 17:21] LABS: BASOPHILS % 0.9 % (0.0-2.0); EOSINOPHILS % 2.7 % (0.0-5.0); HEMOGLOBIN. 15.6 g/dL (12.0-16.0); MEAN CORPUSCULAR HEMOGLOBIN 29.2 pg (28.0-32.0); MEAN CORPUSCULAR HGB CONC 33.8 g/dL (31.0-37.0); MEAN CORPUSCULAR VOLUME 86.4 fL (81.0-99.0); MEAN PLATELET VOLUME 8.9 fl (7.4-10.4); MONOCYTES % 7.4 % (2.0-8.0); PLATELET 353 x1000/uL (130-400); RED BLOOD CELL COUNT 5.32 mill/uL (4.2-5.4); RED CELL DISTRIBUTION WIDTH 13.5 % (11.6-14.6); WHITE BLOOD COUNT 10.5 x1000/uL (4.5-11.0)
[2023-08-24 17:21] LABS: KETONES URINE NEGATIVE (NEGATIVE); LEUKOCYTE ESTERASE URINE TRACE (NEGATIVE); NITRITE URINE NEGATIVE (NEGATIVE); OCCULT BLOOD URINE TRACE (NEGATIVE); UROBILINOGEN URINE 0.2 E.U./dL (0.2-1.0)
[2023-08-24 17:36] LABS: ALANINE AMINOTRANSFERASE 32 IU/L (10-49); ASPARTATE AMINOTRANSFERASE 23 IU/L (<34); BILIRUBIN TOTAL 0.7 mg/dL (0.1-1.0); CALCIUM 8.8 mg/dL (8.7-10.4); CARBON DIOXIDE 24 mEq/L (21-32); CHLORIDE 105 mEq/L (98-107); CREATININE 0.8 mg/dL (0.6-1.0); GLUCOSE 278 mg/dL (70-105); POTASSIUM 3.8 mEq/L (3.5-5.1); PROTEIN TOTAL 6.8 g/dL (6.0-8.3); SODIUM 138 mEq/L (136-145); UREA NITROGEN BLOOD 8 mg/dL (9-23)
[2023-08-24 17:37] LABS: BACTERIA URINE TRACE; RBC URINE 0-2 /hpf (0-2); SQUAMOUS EPITHELIAL CELL URINE 1+ /lpf (RARE/1+); WBC URINE 0-2 /hpf (0-2)
[2023-08-24] MEDS ORDERED: ACETAMINOPHEN WITH CODEINE 300/30MG TABLET PO ONE (21:30)
[2023-08-24] MEDS: ACETAMINOPHEN WITH CODEINE 300/30MG TABLET PO NR (23:16)
[2023-08-24] MEDS ORDERED: IBUP-2029 MT (23:40)
[2023-08-24 23:57] VITALS: BP 130/85; PULSE 75; RESP 20; TEMP 97.8
== END 2023-08-25 00:04 | disposition home or self-care (01) ==
LOC: ER 16:05
DX: R10.9 Unspecified abdominal pain (principal); E11.9 Type 2 diabetes mellitus without complications; I11.0 Hypertensive heart disease with heart failure; I50.9 Heart failure, unspecified; E78.00 Pure hypercholesterolemia, unspecified; Z90.49 Acquired absence of other specified parts of digestive tract; Z90.710 Acquired absence of both cervix and uterus
CPT/HCPCS: 99284; 74176; 80053; 81003; 81025; 85025; 36415; C1893

== ENCOUNTER 2023-10-09 00:19 | Emergency (ER) | payer MEDICARE, MEDICAID ==
[~2023-10-09] VITALS: Ht 165.1 cm; Wt 80.0 kg
[~2023-10-09 00:19] MED LIST changes: +IBUP-2029 MT
[2023-10-09 00:59] VITALS: TEMP 98.2; O2SAT 96
[2023-10-09 02:18] LABS: CLARITY URINE CLEAR (CLEAR); COLOR URINE YELLOW (YELLOW); GLUCOSE URINE 3+ (NEGATIVE); KETONES URINE NEGATIVE (NEGATIVE); LEUKOCYTE ESTERASE URINE NEGATIVE (NEGATIVE); NITRITE URINE NEGATIVE (NEGATIVE); OCCULT BLOOD URINE NEGATIVE (NEGATIVE); PROTEIN URINE 1+ (NEGATIVE); SPECIFIC GRAVITY URINE 1.023 (1.005-1.030); UROBILINOGEN URINE 0.2 E.U./dL (0.2-1.0)
[2023-10-09] MEDS ORDERED: KETOROLAC 30MG/ML VIAL IM STA (02:29)
[2023-10-09 02:46] VITALS: BP 93/45; PULSE 100; RESP 18
[2023-10-09 02:52] LABS: BASOPHILS % 0.8 % (0.0-2.0); EOSINOPHILS % 3.2 % (0.0-5.0); HEMATOCRIT. 43.1 % (36.0-48.0); HEMOGLOBIN. 14.4 g/dL (12.0-16.0); LYMPHOCYTES % 21.1 % (20.0-50.0); MEAN CORPUSCULAR HEMOGLOBIN 29.3 pg (28.0-32.0); MEAN CORPUSCULAR HGB CONC 33.5 g/dL (31.0-37.0); MEAN CORPUSCULAR VOLUME 87.7 fL (81.0-99.0); MEAN PLATELET VOLUME 8.7 fl (7.4-10.4); MONOCYTES % 7.7 % (2.0-8.0); NEUTROPHILS % 67.2 % (40.0-76.0); PLATELET 318 x1000/uL (130-400); RED BLOOD CELL COUNT 4.91 mill/uL (4.2-5.4); WHITE BLOOD COUNT 11.2 x1000/uL (4.5-11.0)
[2023-10-09 03:01] LABS: ALANINE AMINOTRANSFERASE 24 IU/L (10-49); ALBUMIN 3.7 g/dL (3.2-4.8); ASPARTATE AMINOTRANSFERASE 22 IU/L (<34); BILIRUBIN TOTAL 0.4 mg/dL (0.1-1.0); CALCIUM 8.7 mg/dL (8.7-10.4); CARBON DIOXIDE 27 mEq/L (21-32); CHLORIDE 105 mEq/L (98-107); GLUCOSE 329 mg/dL (70-105); POTASSIUM 3.5 mEq/L (3.5-5.1); PROTEIN TOTAL 6.9 g/dL (6.0-8.3); SODIUM 138 mEq/L (136-145); UREA NITROGEN BLOOD 15 mg/dL (9-23)
[2023-10-09 05:28] LABS: RBC URINE 0-2 /hpf (0-2); SQUAMOUS EPITHELIAL CELL URINE 1+ /lpf (RARE/1+); WBC URINE 0-2 /hpf (0-2)
[2023-10-09 05:29] LABS: BACTERIA URINE TRACE
== END 2023-10-09 07:46 | disposition left against medical advice (07) ==
LOC: ER 00:19
DX: R10.9 Unspecified abdominal pain (principal); E11.65 Type 2 diabetes mellitus with hyperglycemia; J06.9 Acute upper respiratory infection, unspecified; I10 Essential (primary) hypertension; R00.0 Tachycardia, unspecified; Z87.440 Personal history of urinary (tract) infections; Z79.899 Other long term (current) drug therapy; Z20.822 Contact with and (suspected) exposure to COVID-19
CPT/HCPCS: 99285; 74176; 71045; 87426; 80053; 81003; 83690; 85025; 87804 ×2; 36415; 96372; J1885; C9803

== ENCOUNTER 2023-11-26 22:05 | Emergency (ER) | payer MEDICARE, MEDICAID ==
[~2023-11-26] VITALS: Ht 165.1 cm; Wt 77.0 kg
[2023-11-26 23:21] VITALS: BP 155/72; PULSE 101; RESP 20; TEMP 98.3; O2SAT 95
[2023-11-27 01:47] LABS: CLARITY URINE CLOUDY (CLEAR); COLOR URINE YELLOW (YELLOW); GLUCOSE URINE 3+ (NEGATIVE); KETONES URINE NEGATIVE (NEGATIVE); LEUKOCYTE ESTERASE URINE 2+ (NEGATIVE); NITRITE URINE NEGATIVE (NEGATIVE); OCCULT BLOOD URINE 1+ (NEGATIVE); PROTEIN URINE NEGATIVE (NEGATIVE); SPECIFIC GRAVITY URINE 1.035 (1.005-1.030); UROBILINOGEN URINE 0.2 E.U./dL (0.2-1.0)
[2023-11-27] MEDS ORDERED: CEFP200T13 MT (02:04)
[2023-11-27 02:14] LABS: SQUAMOUS EPITHELIAL CELL URINE FEW /lpf (RARE/1+)
[2023-11-27 02:20] LABS: BACTERIA URINE 1+
[2023-11-27 02:24] LABS: YEAST URINE 1+
[2023-11-27] MEDS ORDERED: METH-653 MT (02:33)
== END 2023-11-27 03:32 | disposition home or self-care (01) ==
LOC: ER 22:05
DX: N12 Tubulo-interstitial nephritis, not specified as acute or chronic (principal); E11.9 Type 2 diabetes mellitus without complications; I10 Essential (primary) hypertension; R00.0 Tachycardia, unspecified; Z87.440 Personal history of urinary (tract) infections; Z79.899 Other long term (current) drug therapy; Z90.49 Acquired absence of other specified parts of digestive tract
CPT/HCPCS: 81003; 99283

== ENCOUNTER 2025-09-29 19:35 | Emergency (ER) | payer MEDICARE, MEDICAID ==
[~2025-09-29] VITALS: Ht 152.4 cm; Wt 78.4 kg
[~2025-09-29 19:35] MED LIST changes: +CEFP200T13 MT; +GABA-1180; -GABA-532; +IBUP-1455 MT; -IBUP-2029 MT; -ISOS10TA8 MT; +ISOS10TA95 MT; +METH-653 MT; +SODI88SP; -SODI88SP18
[2025-09-29 19:45] VITALS: TEMP 36.8; O2SAT 97
[2025-09-29 21:08] LABS: CLARITY URINE CLOUDY (CLEAR); COLOR URINE YELLOW (YELLOW); GLUCOSE URINE 3+ (NEGATIVE); KETONES URINE 1+ (NEGATIVE); LEUKOCYTE ESTERASE URINE NEGATIVE (NEGATIVE); NITRITE URINE NEGATIVE (NEGATIVE); OCCULT BLOOD URINE NEGATIVE (NEGATIVE); PH URINE 6.0 (4.5-8.0); PROTEIN URINE 3+ (NEGATIVE); SPECIFIC GRAVITY URINE 1.024 (1.005-1.030); UROBILINOGEN URINE 0.2 E.U./dL (0.2-1.0)
[2025-09-29 21:14] LABS: PROTEIN TOTAL 6.9 g/dL (6.0-8.3); UREA NITROGEN BLOOD 11 mg/dL (9-23)
[2025-09-29 21:15] LABS: ASPARTATE AMINOTRANSFERASE 16 IU/L (<34)
[2025-09-29 21:16] LABS: BILIRUBIN DIRECT 0.1 mg/dL (<=3.0); BILIRUBIN TOTAL 0.6 mg/dL (0.1-1.0)
[2025-09-29 21:23] LABS: CREATININE 1.3 mg/dL (0.6-1.0)
[2025-09-29 21:41] LABS: BACTERIA URINE 2+; SQUAMOUS EPITHELIAL CELL URINE 3+ /lpf (RARE/1+); YEAST URINE 2+
[2025-09-29] MEDS: ONDANSETRON HCL 4MG/2ML INJ IV ONE (23:02)
[2025-09-29] MEDS: LACTULOSE 20G/30ML UDC PO ONE (23:02)
[2025-09-29] MEDS: SODIUM CHLORIDE 0.9% 1,000 ML IV ONE (23:03)
[2025-09-29 23:53] LABS: HEMATOCRIT. 46.6 % (36.0-48.0); HEMOGLOBIN. 15.4 g/dL (12.0-16.0); MEAN PLATELET VOLUME 9.6 fl (7.4-10.4); PLATELET 338 x1000/uL (130-400); RED BLOOD CELL COUNT 5.42 mill/uL (4.2-5.4); RED CELL DISTRIBUTION WIDTH 14.1 % (11.6-14.6)
[2025-09-30] MEDS ORDERED: POLY17PO3 MT (01:32)
[2025-09-30] MEDS ORDERED: FAMO40TA70 MT (01:32)
[2025-09-30] MEDS ORDERED: MAG-55 MT (01:32)
[2025-09-30 02:16] VITALS: BP 139/68; PULSE 112; RESP 16; O2SAT 99
[2025-09-30 04:34] LABS: BAND% 1.0 % (1.0-6.0); EOSINOPHILS % MANUAL 4.0 % (0.0-5.0); LYMPHOCYTES % MANUAL 7.0 % (20.0-60.0); MONOCYTES % MANUAL 6.0 % (2.0-8.0); NEUTROPHILS % MANUAL 82.0 % (45.0-75.0); PLATELET ESTIMATE NORMAL
[2025-09-30] MEDS ORDERED: IOHEXOL-300 100 ML BOTTLE ONE (04:34)
== END 2025-09-30 02:18 | disposition home or self-care (01) ==
LOC: ER 19:35
DX: R10.13 Epigastric pain (principal); R10.31 Right lower quadrant pain; R10.32 Left lower quadrant pain; E11.9 Type 2 diabetes mellitus without complications; E78.5 Hyperlipidemia, unspecified; I10 Essential (primary) hypertension; Z79.1 Long term (current) use of non-steroidal anti-inflammatories (NSAID); Z79.899 Other long term (current) drug therapy; Z90.49 Acquired absence of other specified parts of digestive tract
CPT/HCPCS: 99285; 74177; 96374; 96361; 80076; 80048; 81003; 85025; 36415; Q9967; J2405; J7030